=== PATIENT | male | born 1950 | race Caucasian/White ===

== ENCOUNTER 2017-07-23 10:04 | Emergency (ER) | payer MEDICARE, MEDICAID ==
[~2017-07-23] VITALS: Ht 167.6 cm; Wt 104.0 kg
[2017-07-23 10:05] VITALS: Ht 167.6 cm; Wt 104.0 kg
[2017-07-23] MEDS ORDERED: ALBUTEROL 0.083% (NEB) 2.5 MG/3 ML AMP NEB STA (10:23)
[2017-07-23] MEDS ORDERED: IPRATROPIUM (NEB) 0.5 MG/2.5 ML AMP NEB STA (10:23)
--- NOTE | 2017-07-23 10:32 | ERD ---
ER Documentation Chief Complaint Date/Time DATE: 07/23/17 TIME: 10:31 Chief Complaint COUGH SINCE LAST NIGHT HAS ASTHMA HX HPI Patient is a 66-year-old diabetic male who presents with cough that began last night. He states the cough is dry. He states the last time that this happened he had pneumonia so he wanted to come in as soon as he had symptoms of did not progress. He denies any fever. He denies any chest pain or shortness of breath. He has not taken any medications for this. He denies any hemoptysis, night sweats, or unplanned weight loss. Denies any diaphoresis. He states in the past he has gone antibiotics with great resolution of his symptoms. ROS All systems reviewed and are negative except as per history of present illness. Medications Home Meds Active Scripts Azithromycin* (Zithromax*) 250 Mg Tablet, 250 MG PO .ZPACK DIRECTED, #6 TAB TAKE 500 MG (2 TABS) THE FIRST DAY THEN 250 MG (1 TAB) DAYS 2-5 Prov:ALKA MORENO PA-C 07/23/17 Allergies Allergies: Coded Allergies: No Known Allergy (Unverified , 07/23/17) PMhx/Soc History of Surgery: Yes (5 bypass; on pacemaker) Hx Cardiac Disorders: Yes (hypertension) Hx Miscellaneous Medical Probl: Yes (diabetes mellitus) Hx Alcohol Use: Yes (socially) Hx Substance Use: No Hx Tobacco Use: Yes (used to smoke) Smoking Status: Never smoker FmHx Family History: No diabetes Physical Exam Vitals Vital Signs Date Time Temp Pulse Resp B/P Pulse Ox O2 Delivery O2 Flow Rate FiO2 07/23/17 10:39 70 18 96 21 07/23/17 10:05 98.8 92 18 157/83 98 Physical Exam INITIAL VITAL SIGNS: Reviewed by me GENERAL: Awake, alert and oriented x 4, well appearing, nontoxic, speaking in full sentences. No acute distress HEAD: Atraumatic NECK: Supple. No masses. Full range of motion. No meningismus. No midline tenderness. EYES: EOMI. PERRL. THROAT: No tonilar erythema or edema. No exudates. Uvula midline. No kissing tonsils. RESPIRATORY: Clear to auscultation bilaterally. Symmetric chest wall rise. No wheezing or rales. No accessory muscle use. CV: Regular rate and rhythm. No murmurs, rubs, or gallops. ABDOMEN: Soft, non-distended. Nontender. Negative Combs. Negative McBurneys point tenderness. No CVA tenderness bilaterally. No guarding. No rebound. EXTREMITIES: No clubbing or cyanosis. No edema. Moving all extremities normally. BACK: No midline tenderness to palpation. No step-offs. Results 24 hrs Laboratory Tests Test 07/23/17 11:08 Bedside Glucose 179mg/dL Current Medications Medications (Trade) Dose Ordered Sig/Tara Route PRN Reason Start Time Stop Time Status Last Admin Dose Admin Albuterol (Proventil 0.083% (Neb)) 2.5 mg ONCE STAT NEB 07/23/17 10:23 07/23/17 10:25 DC 07/23/17 10:38 Ipratropium Dupont (Atrovent 0.02% (Neb)) 0.5 mg ONCE STAT NEB 07/23/17 10:23 07/23/17 10:25 DC 07/23/17 10:39 Procedures/MDM 66-year-old male presents with cough that began last night. He has elevated blood pressure 157/83 otherwise his vital signs are within normal limits and he is afebrile with O2 saturation 98% room air. He was given a breathing treatment and chest x-ray was ordered. He felt much better after the breathing treatment. His x-ray does not show any evidence of pneumonia or any emergent acute pathology. Patient was discharged with a Z-Raji. Patient counseled regarding my diagnostic impression and care plan. Prior to discharge all questions answered. Pt agrees with treatment plan and understands strict return precautions. Pt is instructed to follow up with primary care provider within 24- 48 hours. Precautionary instructions provided including instructions to return to the ER if not improving or for any worsening or changing symptoms or concerns. Departure Diagnosis: Primary Impression: Bronchitis Condition: Stable ALKA MORENO PA-C Jul 23, 2017 10:32
--- NOTE | 2017-07-23 11:57 | RADRPT ---
PROCEDURE: Chest 1 views. CLINICAL INDICATION: Shortness of breath. TECHNIQUE: AP views of the chest was obtained. COMPARISON: None. FINDINGS: The heart is large. Left-sided dual chamber pacemaker/defibrillator has its leads over the heart. Me monica sternotomy wires and surgical clips overlie the heart. Mild central pulmonary vascular congesti on and interstitial prominence is seen in both lungs. Atelectasis is identified at the right lung ba se. No consolidations are identified. No pneumothorax is seen. Osseous structures are intact. IMPRESSION: Cardiomegaly . Central pulmonary vascular congestion and interstitial prominence in both lungs. Atelectasis at the right lung base. RPTAT: AA .Blair Govea MD, Date Time Electronically viewed and signed by .Blair Govea MD, MD on 07/23/2017 11:57 .P/
[2017-07-23] MEDS ORDERED: AZIT250T94 PO (12:06)
== END 2017-07-23 13:04 | disposition home or self-care (01) ==
LOC: FTE 10:04
DX: J20.9 Acute bronchitis, unspecified (principal); I10 Essential (primary) hypertension; E11.9 Type 2 diabetes mellitus without complications; Z95.0 Presence of cardiac pacemaker
CPT/HCPCS: 71010; 82962; 94664